=== PATIENT | male | born 1975 | race Two or more races ===

== ENCOUNTER 2020-06-26 09:33 | Emergency (ER) | payer OTHER ==
[~2020-06-26] VITALS: Ht 170.2 cm; Wt 80.0 kg
[~2020-06-26 09:33] MED LIST: FENO145T3 PO; FLUT1DIS IH; LORA10TA3 PO; MEMA10TA PO; QUET50TA PO; SERT-268 PO
[2020-06-26] MEDS ORDERED: FAMOTIDINE 20 MG/2 ML VIAL IVP ONE (10:00)
[2020-06-26] MEDS ORDERED: IV NORMAL SALINE 1000ML BAG 1,000 ML IV ONE (10:00)
[2020-06-26 10:17] LABS: BASO % 1 % (0-3); EOS # 0.1 x10^3/uL (0.0-0.7); EOS % 2 % (0-3); HEMATOCRIT 35.8 % (39.0-53.0); HEMOGLOBIN 12.3 g/dL (13.0-17.5); LYMPH # 1.5 x10^3/uL (1.0-4.8); LYMPH % 26 % (24-48); MEAN CORPUSCULAR HEMOGLOBIN 30 pg (25-35); MEAN CORPUSCULAR HGB CONC 34 g/dL (31-37); MEAN CORPUSCULAR VOLUME 88 fL (79-100); MONO # 0.7 x10^3/uL (0.0-1.1); MONO % 11 % (0-9); NEUT # 3.7 x10^3/uL (1.8-7.7); NEUT % 61 % (31-73); PLATELET COUNT 198 x10^3/uL (140-400); RED BLOOD COUNT 4.05 x10^6/uL (4.30-5.70); RED CELL DISTRIBUTION WIDTH 13.9 % (11.5-14.5)
[2020-06-26 10:29] LABS: CALCIUM 8.9 mg/dL (8.5-10.1); GFR 80.8; POTASSIUM 3.5 mmol/L (3.5-5.1)
[2020-06-26 10:34] LABS: ALBUMIN 3.5 g/dL (3.4-5.0); ALBUMIN/GLOBULIN RATIO 0.9 (1.0-1.7); TOTAL BILIRUBIN 0.3 mg/dL (0.2-1.0); TOTAL PROTEIN 7.6 g/dL (6.4-8.2)
[2020-06-26 10:41] LABS: CREATINE KINASE 148 U/L (39-308)
--- NOTE | 2020-06-26 10:46 | RAD ---
CT HEAD/BRAIN WO Date: 06/26/2020 10:27 AM Clinical Indication: facial tweaking Comparison: None. Technique: 5 mm axial tomographic images were obtained of the head without contrast. These were view ed on brain and bone windows. One or more of the following dose reduction techniques were utilized: A utomated exposure control (AEC), Adjustment of mA and/or kV according to patient size, Use of iterati ve reconstruction technique such as ASiR, CT scan done according to ALARA and image gently/image rogers ly Findings: The brain parenchyma is normal in attenuation. No intra- or extra-axial mass or fluid collection. No acute hemorrhage. The ventricles are normal in size, shape, and morphology. The luna-white matter mary ction is normal. The subarachnoid cisterns are patent. The visualized paranasal sinuses are normal. The visualized portions of the orbits and globes are no rmal. The mastoid air cells are clear. The plastic card grader cardroom topogram shows no lytic lesion or fracture. Impression: No acute intracranial process. Electronically signed by: Sujit Saldivar MD (06/26/2020 10:43 AM) [id number]
[2020-06-26 10:50] LABS: BILIRUBIN,URINE NEGATIVE (NEG); CLARITY,URINE CLEAR; COLOR,URINE YELLOW; NITRITE,URINE NEGATIVE (NEG); PH,URINE 6.5 (<5.0-8.0); PROTEIN,URINE NEGATIVE (NEG-TRACE)
[2020-06-26 10:56] LABS: BARBITURATES NEG (NEG); BENZODIAZEPINES NEG (NEG); CANNABINOIDS NEG (NEG); COCAINE NEG (NEG); METHADONE NEG (NEG); OPIATES NEG (NEG); PHENCYCLIDINE NEG (NEG)
--- NOTE | 2020-06-26 10:57 | PHYS DOC ---
Past Medical History Past Medical History: High Cholesterol, Schizophrenia, Unknown, Other Additional Past Medical Histor: mild intellectual developmental disability; seasonal allergies Past Surgical History: No Surgical History Smoking Status: Never Smoker Alcohol Use: None Drug Use: None General Adult EDM: Chief Complaint: TREMORS HPI: HPI: Patient is a 44 year old male with history of developmental delay, high cholesterol, schizophrenia, nonverbal, coming from a nursing home, EMS report, states the nursing home staffed informed them patient was touching his abdomen and they were concerned he has abdominal pain. Ed Nurse who received report from the nursing home states patient was twitching this morning and they were concerned he is dehydrated. Patient cannot give any information he is nonverbal Review of Systems: Review of Systems: Constitutional: TATA due to developmental delay Eyes: TATA due to developmental delay HENT: TATA due to developmental delay Respiratory: TATA due to developmental delay Cardiovascular: TATA due to developmental delay GI: TATA due to developmental delay : TATA due to developmental delay Musculoskeletal: TATA due to developmental delay Integument: TATA due to developmental delay Neurologic: Twitching. Denies headache, focal weakness or sensory changes. [] Psychiatric: TATA due to developmental delay Heart Score: Risk Factors: Risk Factors: DM, Current or recent (<one month) smoker, HTN, HLP, family history of CAD, obesity. Risk Scores: Score 0 - 3: 2.5% MACE over next 6 weeks - Discharge Home Score 4 - 6: 20.3% MACE over next 6 weeks - Admit for Clinical Observation Score 7 - 10: 72.7% MACE over next 6 weeks - Early Invasive Strategies Current Medications: Current Medications Medications (Trade) Dose Ordered Sig/[facility] Start Time Stop Time Status Last Admin Dose Admin Famotidine (Pepcid Vial) 20 mg 1X ONCE 06/26/20 10:00 06/26/20 10:01 DC 06/26/20 10:09 20 MG Sodium Chloride 1,000 ml @ 1,000 mls/hr 1X ONCE 06/26/20 10:00 06/26/20 10:59 06/26/20 10:08 1,000 MLS/HR Allergies: Allergies: Allergies Coded Allergies Type Severity Reaction Last Updated Verified No Known Drug Allergies 09/12/14 No Physical Exam: PE: Constitutional: Well developed, well nourished, no acute distress, non-toxic appearance. [] HENT: Normocephalic, atraumatic, bilateral external ears normal, oropharynx moist, no oral exudates, nose normal. [] Eyes: PERRLA, EOMI, conjunctiva normal, no discharge. [] Neck: Normal range of motion, no tenderness, supple, no stridor. [] Cardiovascular:Heart rate regular rhythm, no murmur [] Lungs & Thorax: Bilateral breath sounds clear to auscultation [] Abdomen: Bowel sounds normal, soft, no tenderness, no masses, no pulsatile masses. [] Skin: Warm, dry, no erythema, no rash. [] Back: No tenderness, no CVA tenderness. [] Extremities: No tenderness, no cyanosis, no clubbing, ROM intact, no edema. [] Neurologic: Alert and oriented X 1, normal motor function, normal sensory function, no focal deficits noted. Bilateral facial twitching noted Psychologic: smiling Current Patient Data: Labs: Laboratory Tests Test 06/26/20 10:05 White Blood Count 6.0 x10^3/uL (4.0-11.0) Red Blood Count 4.05 x10^6/uL (4.30-5.70) L Hemoglobin 12.3 g/dL (13.0-17.5) L Hematocrit 35.8 % (39.0-53.0) L Mean Corpuscular Volume 88 fL (79-100) Mean Corpuscular Hemoglobin 30 pg (25-35) Mean Corpuscular Hemoglobin Concent 34 g/dL (31-37) Red Cell Distribution Width 13.9 % (11.5-14.5) Platelet Count 198 x10^3/uL (140-400) Neutrophils (%) (Auto) 61 % (31-73) Lymphocytes (%) (Auto) 26 % (24-48) Monocytes (%) (Auto) 11 % (0-9) H Eosinophils (%) (Auto) 2 % (0-3) Basophils (%) (Auto) 1 % (0-3) Neutrophils # (Auto) 3.7 x10^3/uL (1.8-7.7) Lymphocytes # (Auto) 1.5 x10^3/uL (1.0-4.8) Monocytes # (Auto) 0.7 x10^3/uL (0.0-1.1) Eosinophils # (Auto) 0.1 x10^3/uL (0.0-0.7) Basophils # (Auto) 0.0 x10^3/uL (0.0-0.2) Sodium Level 140 mmol/L (136-145) Potassium Level 3.5 mmol/L (3.5-5.1) Chloride Level 104 mmol/L (98-107) Carbon Dioxide Level 25 mmol/L (21-32) Anion Gap 11 (6-14) Blood Urea Nitrogen 15 mg/dL (8-26) Creatinine 1.0 mg/dL (0.7-1.3) Estimated GFR (Cockcroft-Gault) 80.8 BUN/Creatinine Ratio 15 (6-20) Glucose Level 149 mg/dL (70-99) H Calcium Level 8.9 mg/dL (8.5-10.1) Total Bilirubin 0.3 mg/dL (0.2-1.0) Aspartate Amino Transferase (AST) 26 U/L (15-37) Alanine Aminotransferase (ALT) 48 U/L (16-63) Alkaline Phosphatase 66 U/L (46-116) Creatine Kinase 148 U/L (39-308) Creatine Kinase MB (Mass) < 0.5 ng/mL (0.0-3.6) Creatine Kinase MB Relative Index % (0-4) Total Protein 7.6 g/dL (6.4-8.2) Albumin 3.5 g/dL (3.4-5.0) Albumin/Globulin Ratio 0.9 (1.0-1.7) L Lipase 227 U/L (73-393) Ethyl Alcohol Level < 10 mg/dL (0-10) Laboratory Tests 06/26/20 10:05 Laboratory Tests 06/26/20 10:05 Vital Signs: Vital Signs Date Time Temp Pulse Resp B/P (MAP) Pulse Ox O2 Delivery O2 Flow Rate FiO2 06/26/20 09:33 97.8 84 16 115/67 (83) 97 Room Air 97.8 EKG: EKG: [] Radiology/Procedures: Radiology/Procedures: []PROCEDURE: CT HEAD WO CONTRAST CT HEAD/BRAIN WO Date: 06/26/2020 10:27 AM Clinical Indication: facial tweaking Comparison: None. Technique: 5 mm axial tomographic images were obtained of the head without contrast. These were viewed on brain and bone windows. One or more of the following dose reduction techniques were utilized: Automated exposure control (AEC), Adjustment of mA and/or kV according to patient size, Use of iterative reconstruction technique such as ASiR, CT scan done according to ALARA and image gently/image wisely Findings: The brain parenchyma is normal in attenuation. No intra- or extra-axial mass or fluid collection. No acute hemorrhage. The ventricles are normal in size, shape, and morphology. The luna-white matter junction is normal. The subarachnoid cisterns are patent. The visualized paranasal sinuses are normal. The visualized portions of the orbits and globes are normal. The mastoid air cells are clear. The motion picture equipment machinist topogram shows no lytic lesion or fracture. Impression: No acute intracranial process. Electronically signed by: Alva Saldivar MD (06/26/2020 10:43 AM) [id number] DICTATED and SIGNED BY: ALVA SALDIVAR MD DATE: 06/26/20 [id number] PROCEDURE: CT HEAD WO CONTRAST CT HEAD/BRAIN WO Date: 06/26/2020 10:27 AM Clinical Indication: facial tweaking Comparison: None. Technique: 5 mm axial tomographic images were obtained of the head without contrast. These were viewed on brain and bone windows. One or more of the following dose reduction techniques were utilized: Automated exposure control (AEC), Adjustment of mA and/or kV according to patient size, Use of iterative reconstruction technique such as ASiR, CT scan done according to ALARA and image gently/image wisely Findings: The brain parenchyma is normal in attenuation. No intra- or extra-axial mass or fluid collection. No acute hemorrhage. The ventricles are normal in size, shape, and morphology. The luna-white matter junction is normal. The subarachnoid cisterns are patent. The visualized paranasal sinuses are normal. The visualized portions of the orbits and globes are normal. The mastoid air cells are clear. The motion picture equipment machinist topogram shows no lytic lesion or fracture. Impression: No acute intracranial process. Electronically signed by: Alva Saldivar MD (06/26/2020 10:43 AM) [id number] DICTATED and SIGNED BY: ALVA SALDIVAR MD DATE: 06/26/20 [id number] Course & Med Decision Making: Course & Med Decision Making Pertinent Labs and Imaging studies reviewed. (See chart for details) This is a 44-year-old male patient presenting to the ED today from a nursing home to be evaluated for facial twitching and concern for dehydration. Patient is nonverbal due to developmental delays. CBC with Hgb of 12.3 HCT 35.8 unknown baseline. CMP with no acute findings, UA is negative. CT of the head is negative. CK-MB is normal. Patient was given a liter of fluid. Physical exam patient was noted to have some facial twitching especially around her bilateral eyes, it is hard to tell if this patient has tardive dyskinesia considering we do not have a list of his medications. He could also have tardive dyskinesia. He is nonverbal. Was discharged back to the nursing home with instructions to follow-up with the PCP. Vee Disclaimer: Vee Disclaimer: This electronic medical record was generated, in whole or in part, using a voice recognition dictation system. Departure Departure Impression: Primary Impression: Facial twitching Additional Impression: Tardive dyskinesia Disposition: 01 DC HOME SELF CARE/HOMELESS Condition: STABLE Referrals: CLAUDE BYNUM MD (PCP) followup in the course of this week Patient Instructions: Tardive Dyskinesia Additional Instructions: Juan David was evaluated in the ER. He had a negative CAT scan of the head. His CBC CMP CK-MB and UA were negative for any acute findings. He was noted to have facial twitching. He could have tardive dyskinesia. Please follow-up with his primary care doctor as soon as possible. JUAREZ GRANADO APRN Jun 26, 2020 10:57
[2020-06-26 10:58] LABS: AMPHETAMINE/METHAMPHETAMINE NEG (NEG)
[2020-06-26 11:38] LABS: BACTERIA,URINE 0 /HPF (0-FEW); RBC,URINE 0 /HPF (0-2); SPERM,URINE PRESENT /HPF; WBC,URINE 0 /HPF (0-4)
[2020-06-26 11:40] VITALS: BP 122/77
== END 2020-06-26 12:08 | disposition home or self-care (01) ==
LOC: ER 09:33
DX: G24.01 Drug induced subacute dyskinesia (principal); E78.00 Pure hypercholesterolemia, unspecified; F20.9 Schizophrenia, unspecified
CPT/HCPCS: 36415; 70450; 80053; 80307; 81001; 82553; 83690; 85025; 96361; 96374; 99285; G0480; J3490; J7030

== ENCOUNTER 2021-03-24 16:06 | Emergency (ER) | payer OTHER ==
[~2021-03-24 16:06] MED LIST changes: -QUET50TA PO; +QUET50TA3 PO
== END 2021-03-24 16:32 | disposition left against medical advice (07) ==
LOC: ER 16:06
DX: R25.8 Other abnormal involuntary movements (principal); Z53.21 Procedure and treatment not carried out due to patient leaving prior to being seen by health care provider